=== PATIENT | female | born 1985 | race Caucasian/White ===

== ENCOUNTER 2017-04-15 17:58 | Inpatient (IN) | payer BC ==
[2017-04-15] MEDS ORDERED: Phenylephrine 1% 10 MG/ML SDV IV ONE (19:30)
[2017-04-15] MEDS ORDERED: Succinylcholine 200 MG/10 ML MDV IV ONE (19:30)
[2017-04-15] MEDS ORDERED: Morphine PF 10 MG/10 ML SDV ONE (19:30)
[2017-04-15] MEDS ORDERED: Propofol 200 MG/20 ML SDV IV ONE (19:30)
[2017-04-15] MEDS ORDERED: fentaNYL 100 MCG/2 ML SDV ITHECAL ONE (19:30)
[2017-04-15] MEDS ORDERED: ceFAZolin 1 GM Vial IV ONE (19:30)
[2017-04-15] MEDS ORDERED: Ondansetron 4 MG/2 ML SDV IVPUSH ONE (19:30)
[2017-04-15] MEDS ORDERED: Lidocaine 2% 100 MG/5 ML Syringe IVPUSH ONE (19:30)
[2017-04-15] MEDS ORDERED: ePHEDrine 50 MG/ML SDV IV ONE (19:30)
[2017-04-15] MEDS ORDERED: Ketorolac 30 MG/ML SDV IVPUSH ONE (19:30)
[2017-04-15] MEDS ORDERED: Oxytocin 10 Units/1 ML SDV IV ONE (19:30)
[2017-04-15] MEDS ORDERED: Carboprost Tromethamine 250 MCG/1 ML Amp IM ONE (19:30)
[2017-04-15] MEDS ORDERED: diphenhydrAMINE 50 MG/ML SDV IV ONE (19:30)
[2017-04-15] MEDS ORDERED: Hetastarch in NS 500 ML IV ONE (19:30)
[2017-04-15] MEDS ORDERED: Scopolamine 1.5 MG Transdermal Patch TOP ONE (20:14)
[2017-04-15] MEDS ORDERED: Citric Acid/Sodium Citrate Solution 30 ML Cup ONE (21:36)
[2017-04-15] MEDS ORDERED: Sodium Chloride 0.9% 10 ML Syringe FLUSH PRN (21:57)
--- NOTE | 2017-04-15 23:11 | PCM.HPR ---
H & P Addendum review - H & P Addendum Review Date of Original H & P: 04/15/17 Date Reviewed: 04/15/17 Time Reviewed: 22:00 Please note any Changes: Called for STAT C-sect due to poor variability of FHT. Met with patient and briefly to discuss procedure, risks and complications, consent obtained.
--- NOTE | 2017-04-15 23:12 | PCM.OPNOTE ---
- General Post-Op/Procedure Note Date of Surgery/Procedure: 04/15/17 Operative Procedure(s): C-Sect Findings: No Abnormalities Pre Op Diagnosis: Poor variability of FHT Post-Op Diagnosis: Same Anesthesia Technique: General ET tube Primary Surgeon: Star Powers Anesthesia Provider: Ameya Dickson Pathology: Placenta EBL in mLs: 500 Drain/Tube Comments:: none Complications: None Condition: Good
[2017-04-15] MEDS ORDERED: Bisacodyl 10 MG Supp RECTAL PRN (23:13)
[2017-04-15] MEDS ORDERED: ePHEDrine 50 MG/ML SDV IVPUSH PRN (23:13)
[2017-04-15] MEDS ORDERED: Naloxone 0.4 MG/ML SDV IVPUSH PRN (23:13)
[2017-04-15] MEDS ORDERED: diphenhydrAMINE 50 MG/ML SDV IVPUSH PRN (23:13)
[2017-04-15] MEDS ORDERED: Lactated Ringers 1,000 ML IV SCH (23:15)
[2017-04-15] MEDS ORDERED: Morphine 2 MG/ML Syringe IVPUSH PRN (23:17)
--- NOTE | 2017-04-16 09:21 | PCM.PN ---
- General Info Date of Service: 04/16/17 Functional Status: Reports: pain controlled - Review of Systems General: Reports: No Symptoms Gastrointestinal: Reports: No symptoms Genitourinary: Reports: no symptoms - Patient Data Vitals - most recent: Last Vital Signs Temp 98.2 F 04/16/17 05:30 Pulse 86 04/16/17 05:30 Resp 18 04/16/17 05:30 BP 98/53 L 04/16/17 05:30 Pulse Ox 98 04/16/17 05:30 Weight - most recent: 95.254 kg I&O - last 24 hours: Intake & Output 04/15/17 04/16/17 04/16/17 22:59 06:59 14:59 Intake Total 1685 Output Total 250 Balance 1435 Lab Results last 24 hrs: Laboratory Results - last 24 hr 04/15/17 04/16/17 Range/Units 19:30 06:20 WBC 9.7 9.5 (4.5-12.0) X10-3/uL RBC 4.15 3.17 L (3.23-5.20) x10(6)uL Hgb 11.8 8.9 L (11.5-15.5) g/dL Hct 34.7 26.7 L (30.0-51.3) % MCV 83.6 84.0 (80-96) fL MCH 28.4 28.0 (27.7-33.6) pg MCHC 34.0 33.3 (32.2-35.4) g/dL RDW 13.5 13.8 (11.5-15.5) % Plt Count 264 204 (125-369) X10(3)uL MPV 7.3 L 7.3 L (7.4-10.4) fL Neut % (Auto) 69.2 77.7 (46-82) % Lymph % (Auto) 24.5 16.7 (13-37) % [place] % (Auto) 5.6 5.1 (4-12) % Eos % (Auto) 0 L 0 L (1.0-5.0) % Baso % (Auto) 0 0 (0-2) % Neut # (Auto) 6.8 7.4 (1.6-8.3) # Lymph # (Auto) 2.4 1.6 (0.6-5.0) # [place] # (Auto) 0.5 0.5 (0.0-1.3) # Eos # (Auto) 0.0 0.0 (0.0-0.8) # Baso # (Auto) 0.0 0.0 (0.0-0.2) # Med Orders - Current: Current Medications Hydrocodone Bitart/Acetaminophen ([place] 325-5 Mg) 1 tab PO Q4H PRN PRN Reason: Pain (moderate 4-6) Bisacodyl (Dulcolax) 10 mg RECTAL BID PRN PRN Reason: Constipation Diphenhydramine HCl (Benadryl) 25 mg IVPUSH Q6H PRN PRN Reason: Itching or Nausea Last Admin: 04/16/17 05:22 Dose: 25 mg Docusate Sodium (Colace) 100 mg PO Q12H PRN PRN Reason: Constipation Ephedrine Sulfate (Ephedrine Sulfate) 5 mg IVPUSH ASDIRECTED PRN PRN Reason: Other Ibuprofen (Motrin) 600 mg PO Q6H PRN PRN Reason: mild pain or fever Morphine Sulfate (Morphine) 2 mg IVPUSH Q1H PRN PRN Reason: Abdominal Pain Last Admin: 04/16/17 02:21 Dose: 2 mg Sodium Chloride (Saline Flush) 10 ml FLUSH ASDIRECTED PRN PRN Reason: Other Discontinued Medications Citric Acid/Sodium Citrate (Bicitra Solution) Confirm Administered Dose 30 ml .ROUTE .STK-MED ONE Stop: 04/15/17 21:37 Last Admin: 04/16/17 00:18 Dose: Not Given Lactated Ringer's (Ringers, Lactated) 1,000 mls @ 125 mls/hr IV ASDIRECTED MYNOR Last Admin: 04/16/17 07:35 Dose: 125 mls/hr Naloxone HCl (Narcan) 0.1 mg IVPUSH ASDIRECTED PRN PRN Reason: Respiratory Depression Stop: 04/15/17 23:14 Scopolamine (Transderm-Scop) 1.5 mg TOP ONETIME ONE Stop: 04/15/17 20:15 Last Admin: 04/15/17 21:58 Dose: 1.5 mg - Exam General: alert, oriented Abdomen: soft - Problem List Review Problem List Initiated/Reviewed/Updated: Yes - My Orders Last 24 Hours: My Active Orders 04/15/17 23:13 Ambulate [RC] PER UNIT ROUTINE Vital Signs [RC] PER UNIT ROUTINE Wound Care [RC] QSHIFT Acetaminophen/HYDROcodone [[place] 325-5 MG] 1 tab PO Q4H PRN Bisacodyl [Dulcolax] 10 mg RECTAL BID PRN Docusate Sodium [Colace] 100 mg PO Q12H PRN Ibuprofen [Motrin] 600 mg PO Q6H PRN diphenhydrAMINE [Benadryl] 25 mg IVPUSH Q6H PRN ePHEDrine [ePHEDrine Sulfate] 5 mg IVPUSH ASDIRECTED PRN 04/15/17 23:15 RT Incentive Spirometry [RC] Q2HWA 04/15/17 23:17 Morphine 2 mg IVPUSH Q1H PRN 04/16/17 08:00 May Shower [RC] ASDIRECTED 04/16/17 09:19 Remove Mobley Catheter [Urinary Catheter Removal] [RC] Per Unit Routine 04/16/17 Breakfast Clear Liquid Diet [DIET] - Assessment Assessment:: Doing Well POD #1 - Plan Plan:: D/C Mobley and IV
--- NOTE | 2017-04-16 10:01 | PREOP ---
ADMISSION DATE: 04/15/2017 HISTORY OF PRESENT ILLNESS: Nayla Vega is a 33-year-old, 4, para 3- 0-0-3 female admitted in early active first stage of labor. Dk since about 1600 hours. No loss of fluid, no bleeding. Baby has been active. Forty weeks one-day gestational. On admission, she was found to be in active labor. Satisfactory well being, quality heart tones with appropriate decelerations and active labor. She was found to be 4 to 5 cm dilatation, vertex presentation, -1 station, 80% effaced. Anesthesia was summoned for anesthesia purposes. Prolonged attempt for epidural was unsuccessful, switched to intrathecal with good analgesic benefit. The patient experienced an episode of significant hypotension down into the 70s, baby reacted accordingly with a 2 minute episode of heart rate in the 70s, responded to supplemental O2. Adequate fluids, ephedrine, and volume expanders. heart tones returned normal. Subsequently, there was a category II and occasional category I rhythm strip, change in position was beneficial with supplemental O2, a scalp clip was placed which showed a better quality tracing. Again episodes of decreased variability, some marked accelerations, periodically up into the 170s, one episode of sinusoidal presentation, and return to a more satisfactory a baseline. Given lack of dilatation past 6 cm and contra-intrauterine suspects of well being, operative delivery was recommended. Dr. Powers was consulted. She was taken in timely fashion to the operating room. /[id number] LARRY/TAWANNA
--- NOTE | 2017-04-16 12:19 | OR ---
DATE OF OPERATION: 04/16/2017 SURGEON: Star Powers MD PREOPERATIVE DIAGNOSIS: Poor variability of heart tones. POSTOPERATIVE DIAGNOSIS: Poor variability of heart tones. PROCEDURE: section. ANESTHESIA: General. HISTORY: This 31-year-old 4 female is in labor and was having poor variability with decelerations of the heart tones. section was requested. I briefly met with the patient and her prior to the procedure and consent was obtained. DESCRIPTION OF PROCEDURE: The patient was brought to the operating room, where time-out was performed. A Mobley catheter was inserted. The abdomen was prepped and draped sterilely and general endotracheal anesthesia was then administered. A transverse incision was made and the rectus fascia incised. The rectus muscles were split in the midline and peritoneal cavity entered. Bladder blade was inserted and the lower uterine transverse incision was made until the amniotic sac was visible. This was bluntly entered and extended laterally with the scissors. 's head position was right occiput transverse. Her head was delivered without difficulty. Mouth and nose were suctioned. No nuchal cord was present. The rest of the infant female was delivered without difficulty. The amniotic fluid was clear. There was no meconium. Cord was clamped and cut and cord blood obtained. The infant was handed off to the nursing staff and Dr. Spencer. The uterus was massaged and placenta removed completely and all membranes were ensured to be stripped. Pitocin was started immediately and uterus was slow to firm up, so a Hemabate was injected into the uterus. The uterus was closed in two layers with a running locking #1 Vicryl, followed by running #1 Vicryl. Hemostasis was assured. Suture line was observed and inspected. The uterus was delivered back into the peritoneal cavity. Pneumoperitoneum was closed with a running 2-0 chromic. The rectus muscles were loosely reapproximated in the midline with [id number] 0 Vicryl. The rectus fascia was closed with a running 0 Vicryl. Subcutaneous tissue was irrigated and skin closed with a running 4-0 Vicryl subcuticular suture. Benzoin and Steri-Strips were placed and sterile dressing applied. A couple of small clots were evacuated from the vagina following the procedure. The patient tolerated the procedure well. Urine was clear following the procedure. ESTIMATED BLOOD LOSS: 500 mL. /[id number] MARY/TAWANNA
[2017-04-16] MEDS: Ibuprofen 600 MG Tab PO PRN ×2 (13:42→20:04)
[2017-04-16] MEDS: Acetaminophen/HYDROcodone 325-5 MG Tab PO PRN (16:47)
[2017-04-16] MEDS ORDERED: diphenhydrAMINE 25 MG Cap PO PRN (17:13)
[2017-04-17] MEDS: Acetaminophen/HYDROcodone 325-5 MG Tab PO PRN ×3 (00:56→23:44)
[2017-04-17] MEDS: Ibuprofen 600 MG Tab PO PRN ×3 (03:49→20:29)
[2017-04-17] MEDS: Docusate Sodium 100 MG Cap PO PRN ×2 (09:58→20:29)
--- NOTE | 2017-04-17 10:53 | PCM.PN ---
- General Info Date of Service: 04/17/17 Functional Status: Reports: pain controlled, tolerating diet, ambulating, urinating - Review of Systems General: Reports: No Symptoms Gastrointestinal: Reports: No symptoms Genitourinary: Reports: no symptoms - Patient Data Vitals - most recent: Last Vital Signs Temp 97.9 F 04/17/17 07:40 Pulse 78 04/17/17 07:40 Resp 16 04/17/17 07:40 BP 104/69 04/17/17 07:40 Pulse Ox 98 04/17/17 07:40 Weight - most recent: 95.254 kg Med Orders - Current: Current Medications Hydrocodone Bitart/Acetaminophen ([place] 325-5 Mg) 1 tab PO Q4H PRN PRN Reason: Pain (moderate 4-6) Last Admin: 04/17/17 00:56 Dose: 1 tab Bisacodyl (Dulcolax) 10 mg RECTAL BID PRN PRN Reason: Constipation Diphenhydramine HCl (Benadryl) 25 mg PO Q6H PRN PRN Reason: Itching Last Admin: 04/16/17 17:29 Dose: 25 mg Docusate Sodium (Colace) 100 mg PO Q12H PRN PRN Reason: Constipation Last Admin: 04/17/17 09:58 Dose: 100 mg Ephedrine Sulfate (Ephedrine Sulfate) 5 mg IVPUSH ASDIRECTED PRN PRN Reason: Other Ibuprofen (Motrin) 600 mg PO Q6H PRN PRN Reason: mild pain or fever Last Admin: 04/17/17 09:58 Dose: 600 mg Morphine Sulfate (Morphine) 2 mg IVPUSH Q1H PRN PRN Reason: Abdominal Pain Last Admin: 04/16/17 02:21 Dose: 2 mg Sodium Chloride (Saline Flush) 10 ml FLUSH ASDIRECTED PRN PRN Reason: Other Discontinued Medications Carboprost Tromethamine (Hemabate Ds) 250 mcg IM .STK-MED ONE Stop: 04/15/17 19:31 Cefazolin Sodium (Ancef) 1 gm IV .STK-MED ONE Stop: 04/15/17 19:31 Citric Acid/Sodium Citrate (Bicitra Solution) Confirm Administered Dose 30 ml .ROUTE .STK-MED ONE Stop: 04/15/17 21:37 Last Admin: 04/16/17 00:18 Dose: Not Given Diphenhydramine HCl (Benadryl) 25 mg IVPUSH Q6H PRN PRN Reason: Itching or Nausea Last Admin: 04/16/17 05:22 Dose: 25 mg Diphenhydramine HCl (Benadryl) 25 mg IV .STK-MED ONE Stop: 04/15/17 19:31 Ephedrine Sulfate (Ephedrine Sulfate) 20 mg IV .STK-MED ONE Stop: 04/15/17 19:31 Fentanyl (Sublimaze) 25 mcg ITHECAL .STK-MED ONE Stop: 04/15/17 19:31 Lactated Ringer's (Ringers, Lactated) 1,000 mls @ 125 mls/hr IV ASDIRECTED MYNOR Last Admin: 04/16/17 07:35 Dose: 125 mls/hr Hetastarch/Sodium Chloride (Hetastarch 6% In Normal Saline) 500 mls @ as directed IV .STK-MED ONE Stop: 04/15/17 19:31 Acetaminophen (Ofirmev) 100 mls @ as directed IV .STK-MED ONE Stop: 04/15/17 19:31 Ketorolac Tromethamine (Toradol) 30 mg IVPUSH .STK-MED ONE Stop: 04/15/17 19:31 Lidocaine HCl (Xylocaine 2%) 80 mg IVPUSH .STK-MED ONE Stop: 04/15/17 19:31 Morphine Sulfate (Duramorph Pf) 0.5 mg .XX .STK-MED ONE Stop: 04/15/17 19:31 Naloxone HCl (Narcan) 0.1 mg IVPUSH ASDIRECTED PRN PRN Reason: Respiratory Depression Stop: 04/15/17 23:14 Ondansetron HCl (Zofran) 4 mg IVPUSH .STK-MED ONE Stop: 04/15/17 19:31 Oxytocin (Pitocin) 20 unit IV .STK-MED ONE Stop: 04/15/17 19:31 Phenylephrine HCl (Daniel-Synephrine) 0.1 mg IV .STK-MED ONE Stop: 04/15/17 19:31 Propofol (Diprivan 20 Ml) 200 mg IV .STK-MED ONE Stop: 04/15/17 19:31 Scopolamine (Transderm-Scop) 1.5 mg TOP ONETIME ONE Stop: 04/15/17 20:15 Last Admin: 04/15/17 21:58 Dose: 1.5 mg Succinylcholine Chloride (Quelicin) 120 mg IV .STK-MED ONE Stop: 04/15/17 19:31 - Exam General: alert, oriented Abdomen: soft, no tenderness Wound/Incisions: healing well - Problem List Review Problem List Initiated/Reviewed/Updated: Yes - My Orders Last 24 Hours: My Active Orders 04/16/17 17:13 diphenhydrAMINE [Benadryl] 25 mg PO Q6H PRN 04/16/17 Dinner Regular Diet [DIET] - Assessment Assessment:: Doing Well POD #2 - Plan Plan:: Advance diet
[2017-04-18] MEDS: Ibuprofen 600 MG Tab PO PRN (07:48)
[2017-04-18 08:00] VITALS: BP 120/75
[2017-04-18] MEDS: Docusate Sodium 100 MG Cap PO PRN (10:33)
--- NOTE | 2017-04-18 12:02 | PCM.DCSUM1 ---
Discharge Summary - Hospital Course Free Text/Narrative:: Underwent emergency C-sect on 04/15/2017 for poor variability of FHT. - Discharge Data Discharge Date: 04/18/17 Discharge Disposition: Home, Self-Care 01 Condition: Good - Patient Summary/Data Operative Procedure(s) Performed: C-Sect Complications: none Hospital Course: Post op course was uncomplicated. Incision is healing well and bowel function has returned - Patient Instructions Diet: Usual Diet as Tolerated Activity: No Lifting Over 20 Pounds (for 4 weeks) Showering/Bathing: May Shower Wound/Incision Care: Keep Operative Site/Wound Site Clean and Dry Notify Provider of: Increased Pain, Swelling and Redness, Drainage - Discharge Plan Home Medications: Home Meds Loratadine [Claritin] 10 mg PO DAILY 04/16/17 [History] Montelukast [Singulair] 10 mg PO BEDTIME 04/16/17 [History] PNV95/Ferrous Fumarate/FA [ Tablet] 1 each PO DAILY 04/16/17 [History] Sertraline [Zoloft] 50 mg PO DAILY 04/16/17 [History] Patient Handouts: , Depression and Baby Blues, Care After Delivery, Challenges and Solutions , Hand Washing Referrals: Ameya Dickson MD [Primary Care Provider] - (f/u same time as baby for incision check) - Discharge Summary/Plan Comment DC Time >30 min.: No Discharge Summary/Plan Comment: Will use OTC Ibuprofen 800 mg three times daily for 1 week, the prn - Patient Data Vitals - Most Recent: Last Vital Signs Temp 98.2 F 04/18/17 07:59 Pulse 70 04/18/17 07:59 Resp 16 04/18/17 07:59 BP 120/75 04/18/17 07:59 Pulse Ox 99 04/18/17 07:59 Weight - Most Recent: 95.254 kg Med Orders - Current: Current Medications Hydrocodone Bitart/Acetaminophen ([place] 325-5 Mg) 1 tab PO Q4H PRN PRN Reason: Pain (moderate 4-6) Last Admin: 04/17/17 23:44 Dose: 1 tab Bisacodyl (Dulcolax) 10 mg RECTAL BID PRN PRN Reason: Constipation Diphenhydramine HCl (Benadryl) 25 mg PO Q6H PRN PRN Reason: Itching Last Admin: 04/16/17 17:29 Dose: 25 mg Docusate Sodium (Colace) 100 mg PO Q12H PRN PRN Reason: Constipation Last Admin: 04/18/17 10:33 Dose: 100 mg Ephedrine Sulfate (Ephedrine Sulfate) 5 mg IVPUSH ASDIRECTED PRN PRN Reason: Other Ibuprofen (Motrin) 600 mg PO Q6H PRN PRN Reason: mild pain or fever Last Admin: 04/18/17 07:48 Dose: 600 mg Morphine Sulfate (Morphine) 2 mg IVPUSH Q1H PRN PRN Reason: Abdominal Pain Last Admin: 04/16/17 02:21 Dose: 2 mg Sodium Chloride (Saline Flush) 10 ml FLUSH ASDIRECTED PRN PRN Reason: Other Discontinued Medications Carboprost Tromethamine (Hemabate Ds) 250 mcg IM .STK-MED ONE Stop: 04/15/17 19:31 Cefazolin Sodium (Ancef) 1 gm IV .STK-MED ONE Stop: 04/15/17 19:31 Citric Acid/Sodium Citrate (Bicitra Solution) Confirm Administered Dose 30 ml .ROUTE .STK-MED ONE Stop: 04/15/17 21:37 Last Admin: 04/16/17 00:18 Dose: Not Given Diphenhydramine HCl (Benadryl) 25 mg IVPUSH Q6H PRN PRN Reason: Itching or Nausea Last Admin: 04/16/17 05:22 Dose: 25 mg Diphenhydramine HCl (Benadryl) 25 mg IV .STK-MED ONE Stop: 04/15/17 19:31 Ephedrine Sulfate (Ephedrine Sulfate) 20 mg IV .STK-MED ONE Stop: 04/15/17 19:31 Fentanyl (Sublimaze) 25 mcg ITHECAL .STK-MED ONE Stop: 04/15/17 19:31 Lactated Ringer's (Ringers, Lactated) 1,000 mls @ 125 mls/hr IV ASDIRECTED [facility] Last Admin: 04/16/17 07:35 Dose: 125 mls/hr Hetastarch/Sodium Chloride ([place] 6% In Normal Saline) 500 mls @ as directed IV .STK-MED ONE Stop: 04/15/17 19:31 Acetaminophen (Ofirmev) 100 mls @ as directed IV .STK-MED ONE Stop: 04/15/17 19:31 Ketorolac Tromethamine (Toradol) 30 mg IVPUSH .STK-MED ONE Stop: 04/15/17 19:31 Lidocaine HCl (Xylocaine 2%) 80 mg IVPUSH .STK-MED ONE Stop: 04/15/17 19:31 Morphine Sulfate (Duramorph Pf) 0.5 mg .XX .STK-MED ONE Stop: 04/15/17 19:31 Naloxone HCl (Narcan) 0.1 mg IVPUSH ASDIRECTED PRN PRN Reason: Respiratory Depression Stop: 04/15/17 23:14 Ondansetron HCl (Zofran) 4 mg IVPUSH .STK-MED ONE Stop: 04/15/17 19:31 Oxytocin (Pitocin) 20 unit IV .STK-MED ONE Stop: 04/15/17 19:31 Phenylephrine HCl (Daniel-Synephrine) 0.1 mg IV .STK-MED ONE Stop: 04/15/17 19:31 Propofol (Diprivan 20 Ml) 200 mg IV .STK-MED ONE Stop: 04/15/17 19:31 Scopolamine (Transderm-Scop) 1.5 mg TOP ONETIME ONE Stop: 04/15/17 20:15 Last Admin: 04/15/17 21:58 Dose: 1.5 mg Succinylcholine Chloride (Quelicin) 120 mg IV .STK-MED ONE Stop: 04/15/17 19:31 *Q Meaningful Use (DIS) - VTE *Q VTE Criteria *Q: - Stroke *Q Stroke Criteria *Q: - AMI *Q AMI Criteria *Q:
[2017-04-22] MEDS ORDERED: Citric Acid/Sodium Citrate Solution 30 ML Cup PO ONE (21:00)
== END 2017-04-18 13:13 | disposition home or self-care (01) | DRG 540 ==
LOC: FB.OB 17:58 → FB.OBCHECK 17:58 → FB.OB 18:48
PROVIDERS: ADMIT Family Medicine; ATTEND Family Medicine
PROC: 10D00Z1 Extraction of Products of Conception, Low, Open Approach (ICD-10-PCS; principal; 2017-04-15)
PROC: 00HU33Z Insertion of Infusion Device into Spinal Canal, Percutaneous Approach (ICD-10-PCS; 2017-04-15)
DX: O76 Abnormality in fetal heart rate and rhythm complicating labor and delivery (principal); O26.53 Maternal hypotension syndrome, third trimester; Z3A.40 40 weeks gestation of pregnancy; Z37.0 Single live birth
CPT/HCPCS: 36415; 85025; 88307; 99211; A9270-GY; J0131; J0330; J0690; J1200; J1885; J2270; J2370; J2405; J2590; J2704; J3010; J7120

== ENCOUNTER 2022-06-23 16:54 | Emergency (ER) | payer BC, OTHER ==
[2022-06-23] MEDS ORDERED: Ondansetron 4 MG Tab.DIS PO ONE (17:00)
[2022-06-23] MEDS ORDERED: Lactated Ringers 1,000 ML IV ONE (17:07)
[2022-06-23] MEDS ORDERED: LORazepam 2 MG/ML SDV IVPUSH ONE (17:07)
[2022-06-23 20:22] VITALS: BP 122/71; PULSE 81
== END 2022-06-23 19:38 | disposition home or self-care (01) ==
LOC: FB.ED 16:54
DX: T40.711A Poisoning by cannabis, accidental (unintentional), initial encounter (principal); Z91.09 Other allergy status, other than to drugs and biological substances
CPT/HCPCS: 36415; 80307; 96361; 96374; 99000; 99282; 99284-25; J2060; J7120; Q0162